=== PATIENT | female | born 1980 | race Caucasian/White ===

== ENCOUNTER 2016-07-15 20:40 | Emergency (ER) | payer MEDICAID ==
[~2016-07-15] VITALS: Ht 162.6 cm; Wt 81.0 kg
[~2016-07-15 20:40] MED LIST: CALC600T5 PO; FERR240T9 PO; PREN-39 PO
[2016-07-15 20:45] VITALS: Ht 162.6 cm; Wt 81.0 kg
[2016-07-15 22:46] LABS: URINE BLOOD (Dip) POC 3+ (NEGATIVE)
[2016-07-15] MEDS ORDERED: NITR-58 PO ×2 (22:59→23:00)
[2016-07-15] MEDS ORDERED: PHEN-537 PO (23:00)
[2016-07-15] MEDS ORDERED: ONDA-43 PO (23:01)
--- NOTE | 2016-07-15 23:06 | ERD ---
ER Documentation Chief Complaint Date/Time DATE: 07/15/16 TIME: 23:04 Chief Complaint painful urination x 2 days HPI This is a 35-year-old female presents with urinary frequency and dysuria for the last 2 days. Today patient noticed blood in her urine. Patient admits to nausea however denies vomiting. 2 days ago patient had diarrhea which was watery and nonbloody however diarrhea has resolved. Patient does admit to back pain. She denies any vaginal discharge. She denies any fevers or chills. ROS 12 point review of systems was done, all negative except per HPI. Medications Home Meds Active Scripts Ondansetron Hcl* (Zofran*) 4 Mg Tab, 4 MG PO Q4H Y for NAUSEA AND OR VOMITING for 5 Days, TAB Prov:LIMA CABA 07/15/16 Phenazopyridine Hcl* (Pyridium*) 100 Mg Tab, 100 MG PO TID Y for URINARY PAIN, # 8 TAB Prov:LIMA CABA 07/15/16 Nitrofurantoin Monohyd Macrocr* (Macrobid*) 100 Mg Capsr, 100 MG PO BID for 7 Days, CAP Prov:LIMA CABA 07/15/16 Reported Medications Ferrous Gluconate (Iron) 1 Tab Tablet, 1 TAB PO 11/27/13 Calcium Carbonate (CALCIUM) 600 Mg Tablet, 600 MG PO 11/27/13 Vits W-Ca,Fe,Fa(<1MG) ( Vitamins) 1 Tab Tablet, 1 TAB PO 11/27/13 Allergies Allergies: Coded Allergies: No Known Allergy (Verified Allergy, Unknown, 04/08/07) PMhx/Soc Medical and Surgical Hx: pt denies Medical Hx, pt denies Surgical Hx History of Surgery: No Anesthesia Reaction: No Hx Neurological Disorder: No Hx Respiratory Disorders: No Hx Cardiac Disorders: No Hx Psychiatric Problems: No Hx Miscellaneous Medical Probl: No Hx Alcohol Use: No Hx Substance Use: No Hx Tobacco Use: No Physical Exam Vitals Vital Signs Date Time Temp Pulse Resp B/P Pulse Ox O2 Delivery O2 Flow Rate FiO2 07/15/16 20:45 98.8 95 20 135/95 98 Physical Exam GENERAL: The patient is well developed and appropriate for usual state of health , in no apparent distress. HEENT: Atraumatic CHEST: Clear to auscultation bilaterally. There are no rales, wheezes or rhonchi. HEART: Regular rate and rhythm. No murmurs, clicks, rubs or gallops. ABDOMEN: Soft, nontender and nondistended. Good bowel sounds. No rebound or guarding. No gross peritonitis. No gross organomegaly or masses. No Mcknight sign or McBurney point tenderness. Positive suprapubic pain. BACK: No midline or flank tenderness. NEURO: Alert and oriented. Results 24 hrs Laboratory Tests Test 07/15/16 22:48 Bedside Urine pH (LAB) 8.5 Bedside Urine Protein (LAB) 2+ Bedside Urine Glucose (UA) Negative Bedside Urine Ketones (LAB) Negative Bedside Urine Blood 3+ Bedside Urine Nitrite (LAB) Negative Bedside Urine Leukocyte Esterase (L 2+ Procedures/MDM This is a 35-year-old female presents to the ER with urinary frequency and dysuria. Patient does have a urinary tract infection suspicion for pyelonephritis is less patient does not have any CVA tenderness. She is afebrile extremely well-appearing. Suspicion for nephrolithiasis or septic stone is low. Patient be sent home with Macrobid, Pyridium, and Zofran. She is to follow-up with her primary care doctor within 1-2 days or return to ER sooner if symptoms worsen. My medical team making sure with the patient she understands and agrees with plan. Departure Diagnosis: Primary Impression: UTI (urinary tract infection) Condition: Stable Patient Instructions: Understanding Urinary Tract Infections (UTIs) Additional Instructions: Llame al doctor MAANA y shanda lesly NKECHI PARA DENTRO DE 1-2 LOJA.Dgale a la secretaria que nosotros le instruimos hacer esta nkechi.Avise o llame si khan condicin se empeora antes de la nkechi. Regresa aqui si peor o no mejor. LIMA CABA Jul 15, 2016 23:06
== END 2016-07-15 23:10 | disposition home or self-care (01) ==
LOC: FTE 20:40
DX: N39.0 Urinary tract infection, site not specified (principal); R11.0 Nausea
CPT/HCPCS: 81003; Z7502; 99284

== ENCOUNTER 2016-08-18 18:01 | Emergency (ER) | END 2016-08-18 22:09 | disposition home or self-care (01) | DX: R10.31 Right lower quadrant pain (principal); R11.10 Vomiting, unspecified | CPT/HCPCS: 36415; 74176; 76705; 80053; 81001; 83690; 85025; 96374; 96375; J2270; J2405; J7030; Z7502; Z7610 ==